=== PATIENT | male | born 1980 | race Caucasian/White ===

== ENCOUNTER 2019-11-20 09:25 | Emergency (ER) | payer SELFPAY ==
--- NOTE | 2019-11-20 09:42 | ED.CHESTPAIN ---
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, no prior episodes, denies any associated symptoms, does also c/o L upper tooth infection for the past few days MD complaint: chest pain Onset (ago): day(s) (1) Timing of current episode: constant Onset: during rest Pain location: left chest Pain radiation: none Severity: moderate Quality: aching Relieving factors: movement Related Data Previous Rx's Medication Instructions Recorded amoxicillin-pot clavulanate 1 tab PO Q12H #20 tab 11/20/19 [Augmentin] Allergies Allergy/AdvReac Type Severity Reaction Status Date / Time No Known Allergies Allergy Unverified 11/06/19 15:21 Review of Systems Review of Systems: Constitutional : No Weight loss, No Fever, No Chills ENT/Mouth : + left upper tooth pain, no sore throat Eyes: No Eye Pain, No Swelling Cardiovascular : pos Chest Pain, no SOB, no edema Respiratory : No Cough, No Sputum Gastrointestinal : no Nausea, No Vomiting, No Diarrhea, No abdominal Pain Genitourinary : No Dysuria, No Urinary Frequency Musculoskeletal : No joint pain, No Myalgias, No Joint Swelling Skin : No Skin Lesions, No rash Neuro : No Weakness, No Numbness Psych : No Anxiety/Panic, No Depression\ Heme/Lymph: No Bruising, No Bleeding,No Lymphadenopathy Endocrine : No Polyuria, No Polydipsia [facility] Past Medical History Medical History No known health problems Social History Social History (Updated 11/20/19 @ 09:59 by Pratibha Field DO) Alcohol intake: unknown Smoking Status: Current every day smoker Smoked in Last 30 Days: Yes Use of substances other than those prescribed or required for medical reasons: No Substance Use Type: Heroin Substance Use Type Other:: only snorts has never injected Advance Directives: No Advance Directives Information Provided: No Physical Exam Vital Signs and I&O and Narrative: Vital Signs and I&O: Vital Signs Temp 98.8 F 11/20/19 09:53 Pulse 72 11/20/19 10:57 Resp 16 11/20/19 09:53 BP 131/84 11/20/19 10:57 Pulse Ox 95 11/20/19 10:57 Intake & Output 11/19/19 11/20/19 11/20/19 18:59 06:59 18:59 Weight 88.451 kg Body Mass Index 27.9 Const: General: cooperative, healthy appearing, comfortable and no acute distress Orientation/consciousness: oriented to person, oriented to place, oriented to time and patient oriented x3 HENMT: Other: L upper 1st molar is fractured with gum fluctuance but no overt abscess, poor dentition, no other areas of infection noted Head: Yes normal to inspection Eyes: General: appearance normal, both eyes and all related structures Pupils: Equal, round and reactive pupils present EOM: EOMs intact bilaterally Neck: Neck: Yes normal visual inspection Chest: Chest palpation & inspection: tenderness (left wall reproduceble pain also worse with movement of left arm) Resp: Effort & Inspection: normal respiratory effort Auscultation: clear to auscultation bilaterally Cardio: Rate: regular rate Rhythm: regular rhythm Peripheral pulses: Peripheral pulses 2+ throughout GI: Palpation (GI): Soft to palpation and nontender Skin: General skin exam: no rashes or lesions noted Neuro: General: oriented to person, oriented to place, oriented to time and patient oriented x3 Cranial nerves: Yes Equal, round and reactive pupils present and Yes Bilaterally intact EOM present Cognition (Neuro): normal cognition Motor exam (neuro): 5/5 motor strength present throughout Sensory Exam: Normal double simultaneous stimulation for sensation Extrem: General: Yes normal to inspection, Yes no pedal edema and Yes no calf tenderness Psych: Mental Status: mental status grossly normal Speech and movement: Normal speech and movement present Thought process: Normal thought process present Course Course Hospital Course: no distress, no hypoxia, stable for DC can be managed at home with PO antibiotics MDM - Chest Pain MDM Narrative Medical decision making narrative: patient with reproduceable CWP does not use IVDA, no fevers, no URI symptoms, PERC negative, no ACS risk factors, will obtain EKG, troponin x 1, CXR, also has L dental infection no abscess start on augmentin Lab Data Result diagrams: 11/20/19 10:34 11/20/19 10:34 Labs: Lab Results 11/20/19 11/20/1911/19/20 Range/Units 10:34 10:34 10:34 WBC 11.7 H (4.8-10.8) X10*3/uL RBC 4.38 L (4.60-5.80) X10*6/uL Hgb 13.0 L (14.0-18.0) g/dl Hct 38.7 L (42-52) % MCV 88.4 (80-98) fL MCH 29.7 (27.0-33.0) pg MCHC 33.6 (31.0-36.0) g/dl RDW 12.8 (11.0-16.0) % Plt Count 337 (160-400) X10*3/uL MPV 10.6 (9.4-12.4) fL Immature Gran % (Auto) 0.3 (0.0-0.4) % Neut % (Auto) 66.0 (45-73) % Lymph % (Auto) 21.5 (20-40) % Ferry % (Auto) 6.1 (2-11) % Eos % (Auto) 5.5 H (0-4) % Baso % (Auto) 0.6 (0-2) % Neut # (Auto) 7.7 (2.0-8.3) X10*3/uL Lymph # (Auto) 2.5 (1.2-4.9) X10*3/uL Ferry # (Auto) 0.7 (0.1-1.2) X10*3/uL Eos # (Auto) 0.6 H (0.0-0.4) X10*3/uL Baso # (Auto) 0.1 (0.0-0.2) X10*3/uL Abs Immat Gran (auto) 0.04 H (0.00-0.03) X10*3/uL Absolute Nucleated RBC 0.000 (0.0-0.012) X10*3/uL Nucleated RBC % (auto) 0.0 (0.0-0.2) /100WBC Sodium 140 (135-145) mmol/L Potassium 4.7 (3.3-5.1) mmol/l Chloride 105 (96-108) mmol/L Carbon Dioxide 26 (22-29) mmol/L Anion Gap 14 (12-20) BUN 10 (9-16) mg/dL Estim Creat Clear Calc 121.7 Estimated GFR > 60 Random Glucose 100 (60-115) mg/dL Calcium 9.5 (8.4-10.2) mg/dL Troponin I High Sens < 3.5 (<3.5-35.0) ng/L ECG Data ECG #1: Attestation: I personally reviewed and interpreted this ECG as follows: ECG interpretation date: 11/20/19 ECG interpretation time: 10:01 Prior ECG tracings: not available for review Interpretation: NSR at rate of 80, normal pr p waves, normal QRS, normal qTc, normal ST T waves, no ischemia Discharge Plan Discharge Clinical Impression: Atypical chest pain, Dental infection Pneumonia Qualifiers: Pneumonia type: due to unspecified organism Laterality: right Lung location: middle lobe of lung Qualified Code(s): J18.9 - Pneumonia, unspecified organism Patient Disposition: Home, Self-Care Prescriptions: New amoxicillin-pot clavulanate [Augmentin] 875-125 mg tablet 1 tab PO Q12H Qty: 20 RF: 0 Referrals: Physician,None [Primary Care Provider] - 2 days (follow up with your primary care if not better) Stand Alone Forms: Work/School Release
--- NOTE | 2019-11-20 09:44 | XR_ITS ---
EXAMINATION: XR CHEST, PORTABLE CLINICAL INFORMATION: Pain COMPARISON: None TECHNIQUE: Upright portable AP view of the chest is obtained. FINDINGS: There is bibasilar subsegmental atelectasis. In addition, suspect airspace opacity right medial base with some subtle air bronchograms. There is no pneumothorax. No effusion. The heart is normal in size. The vascularity is normal. The hilar and mediastinal contours and visualized bony structures are unremarkable. IMPRESSION: 1. Mild airspace opacity right medial base. 2. Bibasilar subsegmental atelectasis. No effusion.
[2019-11-20 09:53] VITALS: BP 156/93; PULSE 92; RESP 16; TEMP 37.1; O2SAT 98; BMI 27.9
[2019-11-20 10:39] LABS: MANUAL DIFF FLAG NO
[2019-11-20 10:42] LABS: Basophils Absolute Auto 0.1 X10*3/uL (0.0-0.2); Basophils Percent Auto 0.6 % (0-2); Eosinophils Absolute Auto 0.6 X10*3/uL (0.0-0.4); Eosinophils Percent Auto 5.5 % (0-4); Hematocrit 38.7 % (42-52); Imm Gran Abs Auto 0.04 X10*3/uL (0.00-0.03); Imm Gran Pct Auto 0.3 % (0.0-0.4); Lymphocytes Absolute Auto 2.5 X10*3/uL (1.2-4.9); Lymphocytes Percent Auto 21.5 % (20-40); Mean Corpuscular HGB Conc 33.6 g/dl (31.0-36.0); Mean Corpuscular Hemoglobin 29.7 pg (27.0-33.0); Mean Corpuscular Volume 88.4 fL (80-98); Mean Platelet Volume 10.6 fL (9.4-12.4); Monocytes Absolute Auto 0.7 X10*3/uL (0.1-1.2); Monocytes Percent Auto 6.1 % (2-11); Neutrophils Absolute Auto 7.7 X10*3/uL (2.0-8.3); Platelet Count 337 X10*3/uL (160-400); Red Blood Count 4.38 X10*6/uL (4.60-5.80); Red Cell Distribution Width 12.8 % (11.0-16.0); White Blood Count 11.7 X10*3/uL (4.8-10.8)
[2019-11-20] MEDS: Cyclobenzaprine HCl 10 MG TABLET PO (10:55)
[2019-11-20] MEDS: Amoxicillin 500 MG CAPSULE PO (10:56)
[2019-11-20 10:57] VITALS: BP 131/84; PULSE 72; O2SAT 95
[2019-11-20 11:08] LABS: Anion Gap 14 (12-20); Blood Urea Nitrogen 10 mg/dL (9-16); Calcium 9.5 mg/dL (8.4-10.2); Carbon Dioxide 26 mmol/L (22-29); Chloride 105 mmol/L (96-108); Creatinine Clr Calc Pharmacy 121.7; Estimated Glomerular Filt Rate > 60; Glucose Random 100 mg/dL (60-115); Potassium 4.7 mmol/l (3.3-5.1); Sodium 140 mmol/L (135-145)
[2019-11-20 11:14] LABS: Troponin-I High Sensitivity < 3.5 ng/L (<3.5-35.0)
== END 2019-11-20 11:49 | disposition home or self-care (01) ==
PROVIDERS: Emergency Provider Emergency Medicine
DX: J18.9 Pneumonia, unspecified organism (principal); R07.89 Other chest pain; K04.7 Periapical abscess without sinus
CPT/HCPCS: 36415; 71045; 80048; 84484; 85025; 99283; 99284

== ENCOUNTER 2019-12-06 02:25 | Emergency (ER) | payer SELFPAY | END 2019-12-06 02:41 | disposition left against medical advice (07) | LOC: HO.ED 02:55 | PROVIDERS: Emergency Provider Emergency Medicine | DX: K08.89 Other specified disorders of teeth and supporting structures (principal) | CPT/HCPCS: 99281 ==

== ENCOUNTER 2022-03-13 07:47 | Emergency (ER) | payer MEDICAID, SELFPAY ==
[2022-03-13 07:55] VITALS: BP 157/86; PULSE 83; RESP 16; TEMP 37.1; O2SAT 99; BMI 30.7
--- NOTE | 2022-03-13 08:08 | ED.DENTAL ---
HPI - Dental/Oral General Chief complaint: Dental/Oral Stated complaint: Dental pain/Headache Time Seen by Provider: 03/13/22 08:05 Source: patient Mode of arrival: ambulatory History of Present Illness HPI Narrative: 41-year-old male with no significant past medical history presents to the ED complaining of right upper and lower dental pain x1 month. Reports chronically cracked teeth. admits to radiation to right ear/ face. Denies fever, chills, drainage from area, drainage from ear, difficulty/inability to swallow MD Complaint: tooth pain Related Data Previous Rx's Medication Instructions Recorded amoxicillin 875 mg-potassium 1 tab PO Q12H #20 tabs 11/20/19 clavulanate 125 mg tablet (Augmentin) amoxicillin 875 mg-potassium 1 tab PO BID 7 days #14 tabs 03/13/22 clavulanate 125 mg tablet ketorolac 10 mg tablet 10 mg PO TID PRN pain 5 days #15 03/13/22 tabs Allergies Allergy/AdvReac Type Severity Reaction Status Date / Time No Known Allergies Allergy Verified 03/13/22 07:56 Review of Systems Review of Systems: Constitutional: No Fever, No Chills ENT/Mouth: +dental pain,No Ear Pain, No Nasal Congestion, No Sinus Pain, No Hoarseness, No sore throat, No Rhinorrhea, No Swallowing Difficulty Cardiovascular: No Chest Pain, No SOB Respiratory: No Cough, No Sputum, No Wheezing Gastrointestinal: No Nausea, No Vomiting, No Abdominal pain Genitourinary: No Dysuria, No Urinary Frequency, No Hematuria, No Flank Pain Musculoskeletal: No joint pain, No Myalgias, No Joint Swelling Skin: No Skin Lesions, No rash Neuro: No Weakness, No Numbness, No Paresthesias Yes all other systems are reviewed and are negative Constitutional: Constitutional: Reports as per [facility] Past Medical History Attestation statement: The following information was validated with the patient. Medical History No known health problems Social History Social History Alcohol intake: unknown Smoked in Last 30 Days: Yes Use of substances other than those prescribed or required for medical reasons: Yes Substance Use Type: Heroin Advance Directives: No Advance Directives Information Provided: No Physical Exam Vital Signs: Vital Signs: Last Vital Signs Temp 98.8 F 03/13/22 07:55 Pulse 83 03/13/22 07:55 Resp 16 03/13/22 07:55 BP 157/86 H 03/13/22 07:55 Pulse Ox 99 03/13/22 07:55 O2 Del Method 03/13/22 07:55 BMI result Body Mass Index 30.7 Const: General: cooperative, healthy appearing and no acute distress Orientation/consciousness: patient oriented x3 Limitations: no limitations HEENT: Other: +poor dental care, multiple caries. Multiple fractured teeth. Right lower and upper bicuspid with gingival irritation and tenderness. No appreciable fluctuance/induration Head: Yes normal to inspection and Yes atraumatic Ears: hearing grossly normal bilaterally General nose exam: Normal external nose present Face and sinus: Yes normal facial exam Mouth: no drooling Teeth and gingiva: poor dentition Throat: Yes posterior oropharynx normal, Yes tonsils normal, Yes uvula midline, No peritonsillar mass and No uvula laterally displaced Eyes: General: appearance normal, both eyes and all related structures EOM: EOMs intact bilaterally Neck: Neck: Yes normal visual inspection and Yes no meningeal signs Resp: Effort & Inspection: normal respiratory effort and no respiratory distress Cardio: Rate: regular rate Skin: Rashes: no rashes Wounds: no wounds Neuro: General: patient oriented x3, tone normal and no meningeal signs Gait exam (Neuro): Normal gait present Extrem: General: Yes normal to inspection Medications Administered Discontinued Medications Generic Name Dose Route Start Last Admin Trade Name Freq PRN Reason Stop Dose Admin Amoxicillin/Clavulanate Potassium 875 mg 03/13/22 08:22 03/13/22 08:37 Amoxicillin/Potassium Clav 875 Mg Tablet PO 03/13/22 08:23 875 mg ONCE ONE Administration Ketorolac Tromethamine 30 mg 03/13/22 08:22 03/13/22 08:36 Ketorolac Tromethamine 30 Mg/Ml Vial IM 03/13/22 08:23 30 mg ONCE ONE Administration Medical Decision Making Medical Decision Making MDM Narrative: 41-year-old male with no significant past medical history presents to the ED complaining of right upper and lower dental pain x1 month. on exam vital signs stable, NAD, nontoxic appearing, physical exam as above with multiple dental caries and gingival irritation. No evidence of dental or gingival abscess. No evidence of [employer]. Talking in complete sentences, no respiratory distress plan: PO Augmentin, IM Toradol, dentistry follow-up Results discussed with patient including worrisome signs and symptoms and strict return precautions, and when to return to the emergency department. They verbalized understanding and feel safe for discharge at this time. Differential Diagnosis Differential Diagnoses: The differential diagnosis associated with the presentation includes as above Prescription Management I considered prescription management with: Pain Medication and Antibiotic Social Determinants Patient?s care significantly limited by Social Determinants of Health including: Low income Discharge Plan Discharge Clinical Impression: Dental caries Patient Disposition: Home, Self-Care Instructions: Toothache (ED) Additional Instructions: You have multiple cavities. You need to see a dentist. Augmentin is antibiotic please take as prescribed. Toradol anti-inflammatory/pain medication, take with food. In addition take Tylenol at home. If symptoms persist or worsen, he developed facial swelling, fever, difficulty or inability to swallow return to the emergency department Prescriptions: New ketorolac 10 mg tablet 10 mg PO TID PRN (Reason: pain) 5 Days Qty: 15 0RF amoxicillin-pot clavulanate 875-125 mg tablet 1 tab PO BID 7 Days Qty: 14 0RF No Action amoxicillin-pot clavulanate [Augmentin] 875-125 mg tablet 1 tab PO Q12H Qty: 20 0RF Referrals: Abraham Dobbs [Dentist] - Dakota Mary DMD [Dentist] - Izabel Herrera DMD [Dentist] - Interventions: ED Discharge Assessment Last Done: 03/13/22 08:41 Discharge Date/Time: 03/13/22 08:42
[2022-03-13] MEDS: Ketorolac Tromethamine 30 MG/ML VIAL IM (08:36)
[2022-03-13] MEDS: Amoxicillin/Potassium Clav 875 MG TABLET PO (08:37)
== END 2022-03-13 08:42 | disposition home or self-care (01) ==
PROVIDERS: Emergency Provider Emergency Medicine
DX: K02.9 Dental caries, unspecified (principal); K08.89 Other specified disorders of teeth and supporting structures; K03.81 Cracked tooth; F17.200 Nicotine dependence, unspecified, uncomplicated
CPT/HCPCS: 96372; 99284; J1885